=== PATIENT | female | born 2000 | race Hispanic/Latino ===

== ENCOUNTER 2021-11-28 18:11 | Emergency (ER) | payer SELFPAY ==
[2021-11-28] MEDS ORDERED: LIDOCAINE 1% MPF 5 ML VIAL ONE (18:47)
[2021-11-28] MEDS ORDERED: TETANUS & DIPHTHERIA TOX,ADULT 0.5 ML VIAL ONE (19:26)
--- NOTE | 2021-11-28 19:39 | EDPHYS ---
Physician Documentation [facility] Name: Monse Conklin Age: 21 yrs Sex: Female : 2000 Arrival Date: 11/28/2021 Time: 18:14 Bed 11 Private MD: ED Physician Adam Chris HPI: 11/28 18:28 This 21 yrs old Female presents to ER via Ambulatory with complaints of en Laceration To Hand. 18:28 21 yo RHD F presents to ED with laceration to right ring finger from broken glass SCRIPT COORDINATOR. en No numbness or tingling. FROM. bleeding controlled. unk last Tetanus. Historical: - Allergies: 18:27 PENICILLINS; jb4 - Home Meds: 18:27 None [Active]; jb4 - PMHx: 18:27 None; jb4 - PSHx: 18:27 None; jb4 - Immunization history:: Last tetanus immunization: < 5 years ago. - Social history:: Smoking status: Patient denies any tobacco usage or history of. Patient uses alcohol, occasionally. ROS: 18:28 Constitutional: Negative for fever, chills, and weight loss. en 18:28 MS/extremity: Negative for FROM no swelling or deformity. pain over lac. 18:28 Skin: Negative for lac to tuft and across PIP of right middle finger. 18:28 Neuro: Negative for numbness, tingling. 18:28 All other systems are negative. Exam: 18:28 Constitutional: This is a well developed, well nourished patient who is awake, alert, en and in no acute distress. 18:28 Eyes: Conjunctiva: normal, no exudate, no injection. 18:28 ENT: Mouth: Lips: moist, Posterior pharynx: Airway: patent. 18:28 Respiratory: the patient does not display signs of respiratory distress, Respirations: normal. 18:28 Musculoskeletal/extremity: FROM right middle finger at MCP, PIP and DIP of right ring finger. Normal Sensation. Cap refill < 2sec. 18:28 Skin: see above. Vital Signs: 18:24 BP 112 / 85; Pulse 94; Resp 16; Temp 98.5(O); Pulse Ox 98% on R/A; Weight 97.98 kg; jb4 Height 5 ft. 7 in. (170.18 cm); 18:24 Body Mass Index 33.83 (97.98 kg, 170.18 cm) jb4 Laceration: 19:35 Wound Repair of 1.5cm ( 0.6in ) subcutaneous laceration to right ring finger. Distal en neuro/vascular/tendon intact. Anesthesia: Local anesthetic administered with 5 mls of 1% lidocaine. Wound prep: Simple cleansing with betadine. Skin closed with 5 4-0 Nylon using simple sutures and sterile technique. Dressed with bandaid. Patient tolerated well. MDM: 18:28 Differential diagnosis: laceration without tendon injury. en 18:49 Patient medically screened. en 19:35 Data reviewed: vital signs, nurses notes, and as a result, I will discharge patient. 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 Exp: jb4 08/21/2023. Lot #: [id number]. } Route: IM; Site: right deltoid; 19:47 Follow up: Response: Medication administered at discharge. jb4 Disposition: 11/29 09:54 Co-signature as Attending Physician, Adam Chris MD I agree with the assessment and kdr plan of care. Disposition Summary: 11/28/21 19:38 Discharge Ordered Location: Home en Problem: new en Symptoms: have improved en Condition: Stable en Diagnosis - Right ring finger laceration en Followup: en - With: Private Physician - When: 7 - 10 days - Reason: Discharge Instructions: - Discharge Summary Sheet en - Laceration Care, Adult en Forms: - Medication Reconciliation Form en - Thank You Letter en - Antibiotic Education en - Prescription Opioid Use en Signatures: Adam Chris MD MD [facility] Navneet Garza RN RN jb4 Anne Gamez PA PA en
--- NOTE | 2021-11-28 19:39 | ER ---
Nurse's Notes [facility] Name: Monse Conklin Age: 21 yrs Sex: Female : 2000 Arrival Date: 11/28/2021 Time: 18:14 Bed 11 Private MD: Diagnosis: Right ring finger laceration Presentation: 11/28 18:24 Chief complaint: Patient states: I broke my class cup and cut my right ring finger. jb4 Coronavirus screen: At this time, the client does not indicate any symptoms associated with coronavirus-19. Ebola Screen: No symptoms or risks identified at this time. Complicating Factors: There are no complicating factors for this patient. Initial Sepsis Screen: Does the patient meet any 2 criteria? No. Patient's initial sepsis screen is negative. Does the patient have a suspected source of infection? No. Patient's initial sepsis screen is negative. Risk Assessment: Do you want to hurt yourself or someone else? Patient reports no desire to harm self or others. Onset of symptoms was November 28, 2021. Transition of care: patient was not received from another setting of care. 18:24 Method Of Arrival: Ambulatory jb4 18:24 Acuity: JAMES 4 jb4 Historical: - Allergies: 18:27 PENICILLINS; jb4 - Home Meds: 18:27 None [Active]; jb4 - PMHx: 18:27 None; jb4 - PSHx: 18:27 None; jb4 - Immunization history:: Last tetanus immunization: < 5 years ago. - Social history:: Smoking status: Patient denies any tobacco usage or history of. Patient uses alcohol, occasionally. Screenin:45 Abuse screen: Denies threats or abuse. Nutritional screening: No deficits noted. jb4 Tuberculosis screening: No symptoms or risk factors identified. Fall Risk None identified. Assessment: 18:45 General: Appears in no apparent distress. comfortable, Behavior is calm, cooperative, jb4 appropriate for age. Pain: Denies pain. Neuro: Level of Consciousness is awake, alert, obeys commands, Oriented to person, place, time, situation. Cardiovascular: Patient's skin is warm and dry. Respiratory: Airway is patent Respiratory effort is even, unlabored, Respiratory pattern is regular, symmetrical. Derm: Skin is pink, warm \T\ dry. Musculoskeletal: Circulation, motion, and sensation intact. Range of motion: intact in all extremities. Injury Description: Laceration sustained to palmar aspect of distal phalanx of right ring finger and palmar aspect of proximal phalanx of right ring finger. 19:45 Reassessment: Patient appears in no apparent distress at this time. Patient and/or jb4 family updated on plan of care and expected duration. Pain level reassessed. Patient is alert, oriented x 3, equal unlabored respirations, skin warm/dry/pink. Vital Signs: 18:24 BP 112 / 85; Pulse 94; Resp 16; Temp 98.5(O); Pulse Ox 98% on R/A; Weight 97.98 kg; jb4 Height 5 ft. 7 in. (170.18 cm); 18:24 Body Mass Index 33.83 (97.98 kg, 170.18 cm) jb4 ED Course: 18:14 Patient arrived in ED. mr 18:19 Anne Gamez PA is PHCP. en 18:19 Adam Chris MD is Attending Physician. en 18:27 Triage completed. jb4 18:27 Arm band placed on right wrist. jb4 18:45 Patient has correct armband on for positive identification. Bed in low position. Call jb4 light in reach. Side rails up X 1. 19:46 No provider procedures requiring assistance completed. Patient did not have IV access jb4 during this emergency room visit. 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 Exp: jb4 08/21/2023. Lot #: [id number]. } Route: IM; Site: right deltoid; 19:47 Follow up: Response: Medication administered at discharge. jb4 Medication: 19:45 Vaccine Information Statement (VIS) provided today. Questions and/or concerns jb4 addressed. VIS edition date: January 01, 2021. Outcome: 19:38 Discharge ordered by . en 19:46 Discharged to home ambulatory. jb4 19:46 Condition: stable 19:46 Discharge instructions given to patient, Instructed on discharge instructions, follow up and referral plans. Demonstrated understanding of instructions, follow-up care. 19:51 Patient left the ED. jb4 Signatures: Lucia Bell James RN RN jb4 Anne Gamez PA PA en
[2021-11-28 20:03] VITALS: BP 112/85; TEMP 98.5; O2SAT 98
== END 2021-11-28 19:51 | disposition home or self-care (01) ==
LOC: ER 18:11
PROC: 0JQJ0ZZ Repair Right Hand Subcutaneous Tissue and Fascia, Open Approach (ICD-10-PCS; principal; 2021-11-28)
DX: S61.214A Laceration without foreign body of right ring finger without damage to nail, initial encounter (principal); Z23 Encounter for immunization; Z88.0 Allergy status to penicillin
CPT/HCPCS: 90471; 90714; 99283

== ENCOUNTER 2021-12-05 13:32 | Emergency (ER) | payer SELFPAY ==
--- NOTE | 2021-12-05 13:47 | ER ---
Nurse's Notes [facility] Name: Monse Conklin Age: 21 yrs Sex: Female : 2000 Arrival Date: 12/05/2021 Time: 13:33 Bed Waiting Private MD: Diagnosis: Encounter for removal of sutures Presentation: 12/05 13:41 Chief complaint: Patient states: needs sutures removed from right ring finger. iw Coronavirus screen: At this time, the client does not indicate any symptoms associated with coronavirus-19. Ebola Screen: Patient negative for fever greater than or equal to 101.5 degrees Fahrenheit, and additional compatible Ebola Virus Disease symptoms Patient denies exposure to infectious person. Patient denies travel to an Ebola-affected area in the 21 days before illness onset. No symptoms or risks identified at this time. Initial Sepsis Screen: Does the patient meet any 2 criteria? No. Patient's initial sepsis screen is negative. Does the patient have a suspected source of infection? No. Patient's initial sepsis screen is negative. Risk Assessment: Do you want to hurt yourself or someone else? Patient reports no desire to harm self or others. Onset of symptoms was November 28, 2021. 13:41 Method Of Arrival: Ambulatory iw 13:41 Acuity: JAMES 4 iw Triage Assessment: 13:48 General: Appears in no apparent distress. Behavior is calm, cooperative. iw Historical: - Allergies: 13:42 PENICILLINS; iw Screenin:47 Abuse screen: Denies threats or abuse. Denies injuries from another. Nutritional iw screening: No deficits noted. Tuberculosis screening: No symptoms or risk factors identified. Fall Risk None identified. Assessment: 13:47 Reassessment: left 2 sutures in placed with instructions to return on mon or iw this week for removal , pt advised to keep area dry,and that she does not need to keep band aid on at all times. Vital Signs: 13:46 Resp 16; Temp 97.7; Pulse Ox 100% on R/A; iw ED Course: 13:33 Patient arrived in ED. as 13:39 Hiral Bernal FNP-C is PHCP. kb 13:39 Cipriano Issa MD is Attending Physician. kb 13:42 Triage completed. iw 13:42 Arm band placed on. iw 13:50 No provider procedures requiring assistance completed. Patient did not have IV access iw during this emergency room visit. 13:51 Niru Ibarra, RN is Primary Nurse. iw Administered Medications: No medications were administered Outcome: 13:46 Discharge ordered by MD. osuna 13:47 Discharged to home ambulatory. iw 13:47 Condition: good 13:47 Discharge instructions given to patient. 13:47 No charge visit due to suture removal. 13:51 Patient left the ED. iw Signatures: Hiral Bernal, TUTOR-C TUTOR-Debra Nieto as Niru Ibarra, RN RN iw Corrections: (The following items were deleted from the chart) 13:50 13:46 Resp 16bpm; Pulse Ox 100% RA; Temp 97.7F; iw iw
--- NOTE | 2021-12-05 13:47 | EDPHYS ---
Physician Documentation [facility] Name: Monse Conklin Age: 21 yrs Sex: Female : 2000 Arrival Date: 12/05/2021 Time: 13:33 Bed Waiting Private MD: ED Physician Cipriano Issa HPI: 12/05 14:36 This 21 yrs old Female presents to ER via Ambulatory with complaints of Suture kb Removal. 14:36 The patient has sutures on the right ring finger. Previous treatment: The patient was kb initially treated 7 day(s) ago, the care was rendered at [facility], Treatment type: The patient's original treatment included sutures. Sutures/latonia progress: The patient has no c/o's. The wound is well-healing with no redness, swelling, discharge, or dehiscence reported. The patient has not experienced similar symptoms in the past. The patient has not recently seen a physician. Historical: - Allergies: 13:42 PENICILLINS; iw ROS: 14:32 Constitutional: Negative for fever, chills, and weight loss. kb 14:35 Skin: Positive for of the right ring finger, sutures in place. kb 14:35 All other systems are negative. Exam: 14:35 Constitutional: This is a well developed, well nourished patient who is awake, alert, kb and in no acute distress. Head/Face: Normocephalic, atraumatic. ENT: Moist Mucous membranes Respiratory: Respirations even and unlabored. No increased work of breathing. Talking in full sentences MS/ Extremity: Pulses equal, no cyanosis. Neurovascular intact. Full, normal range of motion. Neuro: Awake and alert, GCS 15, oriented to person, place, time, and situation. Moves all extremities. Normal gait. Psych: Awake, alert, with orientation to person, place and time. Behavior, mood, and affect are within normal limits. 14:35 Skin: Wound recheck: Suture laceration closure: the wound is healing well, the edges are well approximated, no evidence of dehiscence, no drainage, no erythema, no swelling. Vital Signs: 13:46 Resp 16; Temp 97.7; Pulse Ox 100% on R/A; iw Procedures: 14:37 Suture/Staple removal: Removed 4 sutures, from right ring finger, site appears healing kb well, when middle suture removed, wound opened slightly. will leave last suture in place for a few more days , Patient tolerated well. MDM: 13:39 Patient medically screened. kb 14:32 Data reviewed: vital signs, nurses notes. Data interpreted: Pulse oximetry: on room air kb is 100 %. Interpretation: normal. Counseling: I had a detailed discussion with the patient and/or guardian regarding: the historical points, exam findings, and any diagnostic results supporting the discharge/admit diagnosis, the need for outpatient follow up, a family practitioner, to return to the emergency department if symptoms worsen or persist or if there are any questions or concerns that arise at home. ED course: Pt educated to return on Mon or for removal of last suture. . Administered Medications: No medications were administered Disposition: 16:47 Co-signature as Attending Physician, Cipriano Issa MD. rn Disposition Summary: 12/05/21 13:46 Discharge Ordered Location: Home kb Condition: Stable kb Diagnosis - Encounter for removal of sutures kb Followup: kb - With: Emergency Department - When: As needed - Reason: Worsening of condition Followup: kb - With: Private Physician - When: 2 - 3 days - Reason: Recheck today's complaints, Continuance of care, Re-evaluation by your physician Discharge Instructions: - Discharge Summary Sheet kb - Suture Removal, Care After kb Forms: - Medication Reconciliation Form kb - Thank You Letter kb - Antibiotic Education kb - Prescription Opioid Use kb Signatures: Hiral Bernal FNP-C FNP-Niru Betts RN RN Cipriano Jackson MD MD rn
[2021-12-05 13:55] VITALS: TEMP 97.7; O2SAT 100
== END 2021-12-05 13:51 | disposition home or self-care (01) ==
LOC: ER 13:32
DX: Z48.02 Encounter for removal of sutures (principal)

== ENCOUNTER 2021-12-09 17:23 | Emergency (ER) | payer SELFPAY ==
--- NOTE | 2021-12-09 18:25 | ER ---
Nurse's Notes [facility] Name: Monse Conklin Age: 21 yrs Sex: Female : 2000 Arrival Date: 12/09/2021 Time: 17:26 Bed DIS3 Private MD: Diagnosis: Encounter for removal of sutures Presentation: 12/09 17:59 Chief complaint: Patient states: needs to have sutures removed from finger. Coronavirus iw screen: At this time, the client does not indicate any symptoms associated with coronavirus-19. Ebola Screen: Patient negative for fever greater than or equal to 101.5 degrees Fahrenheit, and additional compatible Ebola Virus Disease symptoms Patient denies exposure to infectious person. Patient denies travel to an Ebola-affected area in the 21 days before illness onset. No symptoms or risks identified at this time. Initial Sepsis Screen: Does the patient meet any 2 criteria? No. Patient's initial sepsis screen is negative. Does the patient have a suspected source of infection? No. Patient's initial sepsis screen is negative. Risk Assessment: Do you want to hurt yourself or someone else? Patient reports no desire to harm self or others. Onset of symptoms was December 09, 2021. 17:59 Method Of Arrival: Ambulatory iw 17:59 Acuity: JAMES 4 iw Historical: - Allergies: 17:59 PENICILLINS; iw Screenin:00 Abuse screen: Denies threats or abuse. Denies injuries from another. Nutritional iw screening: No deficits noted. Tuberculosis screening: No symptoms or risk factors identified. Fall Risk None identified. Assessment: 18:00 General: Appears in no apparent distress. Behavior is calm, cooperative. Pain: Denies iw pain. Neuro: Level of Consciousness is awake, alert, obeys commands, Oriented to person, place, time, situation. ED Course: 17:26 Patient arrived in ED. as 17:27 Raj Moran PA is PHCP. cp 17:27 Ace Ernst MD is Attending Physician. cp 17:59 Triage completed. iw 18:00 Nriu Ibarra, RN is Primary Nurse. iw 18:00 Arm band placed on. iw 18:01 Patient did not have IV access during this emergency room visit. iw 18:52 Finger splint post suture removal. jl7 Administered Medications: No medications were administered Outcome: 18:25 Discharge ordered by . rei 18:52 Patient left the ED. jl7 Signatures: Debra Cox Irene, RN RN Raj Darden PA PA cp Leal, Jahala, RN RN jl7
--- NOTE | 2021-12-09 18:25 | EDPHYS ---
Physician Documentation [facility] Name: Monse Conklin Age: 21 yrs Sex: Female : 2000 Arrival Date: 12/09/2021 Time: 17:26 Bed DIS3 Private MD: ED Physician Ace Ernst HPI: 12/09 18:23 This 21 yrs old Female presents to ER via Ambulatory with complaints of Suture cp Removal. 18:23 The patient has sutures on the right fourth finger. Previous treatment: the care was cp rendered at [facility]. Sutures/latonia progress: The patient has no c/o's. The wound is well-healing with no redness, swelling, discharge, or dehiscence reported. Historical: - Allergies: 17:59 PENICILLINS; iw ROS: 18:23 Skin: Positive for of the nicole side right fourth finger, suture, Negative for cp erythema. 18:23 Constitutional: Negative for body aches, chills, fever. cp Exam: 18:23 Skin: cellulitis, is not appreciated, Wound recheck: Suture laceration closure: the cp wound is healing well, the edges are well approximated, no evidence of dehiscence, no drainage, no erythema, no swelling, [address] nicole side middle phalanx right fourth finger. 18:23 Constitutional: The patient appears in no acute distress, alert, awake, comfortable, cp non-toxic, well developed, well nourished. Procedures: 18:25 Suture/Staple removal: Removed 1 sutures, from middle phalanx nicole side right fourth cp finger, site appears well healed, Patient tolerated well. MDM: 18:15 Patient medically screened. cp 18:25 Data reviewed: vital signs, nurses notes. cp 18:25 Counseling: I had a detailed discussion with the patient and/or guardian regarding: the cp historical points, exam findings, and any diagnostic results supporting the discharge/admit diagnosis, to return to the emergency department if symptoms worsen or persist or if there are any questions or concerns that arise at home. Response to treatment: the patient's symptoms have markedly improved after treatment, and as a result, I will discharge patient. 12/09 18:23 Order name: Finger Splint; Complete Time: 18:51 cp Administered Medications: No medications were administered Disposition: 12/10 15:56 Co-signature as Attending Physician, Raj CHAPMAN Attestation: The patient's history, jr11 exam findings, diagnostics, and a summary of any interventions or procedures was reviewed in detail with Raj CHAPMAN. Disposition Summary: 12/09/21 18:25 Discharge Ordered Location: Home cp Problem: new cp Symptoms: have improved cp Condition: Stable cp Diagnosis - Encounter for removal of sutures cp Followup: cp - With: Private Physician - When: 2 - 3 days - Reason: Worsening of condition Discharge Instructions: - Discharge Summary Sheet cp - How to Change Your Wound Dressing cp - Suture Removal, Care After cp Forms: - Medication Reconciliation Form cp - Thank You Letter cp - Antibiotic Education cp - Prescription Opioid Use cp Signatures: Niru Ibarra RN RN Raj Darden PA PA cp Ace Ernst MD MD [id number] Corrections: (The following items were deleted from the chart) 12/09 18:26 18:23 The patient has sutures on the left fourth finger, cp cp 12/10 14:31 12/09 18:23 Skin: Positive for of the nicole side right fourth finger, sutures, cp cp
== END 2021-12-09 18:52 | disposition home or self-care (01) ==
LOC: ER 17:23
DX: Z48.02 Encounter for removal of sutures (principal)
CPT/HCPCS: 99282

== ENCOUNTER 2024-01-30 01:36 | Emergency (ER) | payer SELFPAY ==
[2024-01-30] MEDS ORDERED: ONDANSETRON 4 MG/2 ML VIAL ONE (02:10)
[2024-01-30] MEDS ORDERED: NA CHLORIDE 0.9% 1,000 ML ONE (02:10)
[2024-01-30] MEDS ORDERED: MORPHINE 4 MG/ML SYR ONE (02:10)
[2024-01-30 02:29] LABS: Absolute Eosinophils 0.1 K/uL (0-0.5); Absolute Lymphocytes (CBC) 2.9 K/uL (0.7-4.9); Absolute Monocytes 0.7 K/uL (0.1-1.3); Absolute Neutrophil 8.8 K/uL (1.8-8.0); Basophils % 0.2 % (0-1.3); Eosinophils % 0.5 % (0-4.4); Hematocrit 38.8 % (36.0-45.0); Hemoglobin 12.4 g/dL (12.0-15.0); Lymphocytes % 23.3 % (15.3-44.8); MCH 27.4 pg (27.0-35.0); MCHC 31.8 g/dL (32.0-36.0); MCV 86.1 fL (80-100); MPV 9.3 fL (7.6-11.3); Monocytes % 5.6 % (3.3-12.3); Neutrophils % 70.4 % (41.7-73.7); Nucleated Red Blood Cells % 0.1 % (0-0); Platelets 259 thou/uL (152-406); RBC Red Blood Cell Count 4.51 M/uL (3.86-4.86); Red Cell Distribution Width 14.7 % (12.1-15.2)
[2024-01-30 02:32] LABS: Specific Gravity 1.016 (1.005-1.030)
[2024-01-30 02:37] LABS: Specific Gravity 1.016 (1.005-1.030); Sqamous Epithelial <5 /HPF (None Seen); Urine Bacteria None Seen /HPF (<20); Urine Bilirubin NEGATIVE (Negative); Urine Blood Trace (Negative); Urine Clarity Extremely Turbid (Clear); Urine Color Light-Yellow (Yellow); Urine Crystals Unidentified Few /HPF (None Seen); Urine Culture Reflex Order REFLEXED; Urine Glucose NEGATIVE (Negative); Urine Ketones NEGATIVE (Negative); Urine Microscopic Reflex YN ORDER UMIC; Urine Nitrite NEGATIVE (Negative); Urine Protein TRACE (Negative); Urine Urobilinogen Normal (Normal); Urine WBC >50 /HPF (<5); Urine WBC Clump Rare /HPF (None Seen); Urine pH 6.5 (5.0-7.0)
[2024-01-30 02:47] LABS: ALT/SGPT 16 U/L (13-56); Albumin 3.8 g/dL (3.4-5.0); Albumin/Globulin Ratio 0.9 (1.1-1.8); Alkaline Phosphatase 91 U/L (45-117); Anion Gap 9.6 mEq/L (5.0-15.0); BUN Blood Urea Nitrogen 15 mg/dL (7-18); Bicarbonate 25 mEq/L (21-32); Bilirubin Total 0.3 mg/dL (0.2-1.0); Globulin 4.4 g/dL (2.3-3.5); Glomerular Filtration Rate 102 ml/min (=/>90); Glucose Level 117 mg/dL (74-106); Lipase 28 U/L (13-75); Potassium 3.6 mEq/L (3.5-5.1); Protein, Total 8.2 g/dL (6.4-8.2); Sodium Level 138 mEq/L (136-145)
[2024-01-30 02:51] LABS: AST/SGOT < 10 U/L (15-37)
--- NOTE | 2024-01-30 03:57 | EDPHYS ---
Physician Documentation [facility] Name: Monse Conklin Age: 23 yrs Sex: Female : 2000 Arrival Date: 01/30/2024 Time: 01:36 Bed 16 Private MD: ED Physician Raphael Cast HPI: 01/29 01:58 This 23 yrs old Female presents to ER via Ambulatory with complaints of ec2 Abdominal Pain. 01:58 Patient arrives today for evaluation of upper and right-sided abdominal pain. Patient ec2 reports that she has been experiencing upper abdominal pain ongoing since 2 days ago. Patient reports associated nausea, no vomiting. No previous abdominal surgeries. LMP was approximately 2-1/2 weeks ago. No urinary complaints.. 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 - Infectious Disease History:: Denies. - Social history:: Smoking status: Patient denies any tobacco usage or history of. Patient uses alcohol, occasionally. street drugs, marijuana. ROS: 01:58 Constitutional: as per hpi ec2 Exam: 01:58 Constitutional: GEN: NAD Head: atraumatic Eyes: EOMI Ears: External ears are ec2 normal. CV: regular rate LUNGS: no respiratory distress ABD: non-distended, soft, tender in the epigastrium, tender in the right upper and lower quadrant, right flank CVA TTP. SKIN: no evidence of rashes MSK: no evidence of trauma Vital Signs: 01:50 BP 120 / 67; Pulse 82; Resp 18 S; Temp 98.4(O); Pulse Ox 100% on R/A; Weight 95.25 kg lg3 (R); Height 5 ft. 6 in. (R); Pain 8/10; 04:08 BP 134 / 93; Pulse 79; Resp 18; Temp 98.4; Pulse Ox 100% ; cp4 01:50 Body Mass Index 33.89 (95.25 kg, 167.64 cm) lg3 01:50 Pain Scale: Adult lg3 MDM: 01:48 Patient medically screened. ec2 01:58 Data reviewed: vital signs. ED course: Patient arrives today for upper and right-sided ec2 abdominal pain. Examination remarkable for abdominal findings as above. Will obtain lab work, CT imaging.. 02:42 ED course: CBC shows slight leukocytosis. Urine is pertinent for leuk esterase and ec2 WBCs, negative nitrates and bacteria. testing negative. . 03:55 ED course: Urine has leuk esterase present, CT imaging shows concern for possible ec2 cystitis, ovarian cyst noted. Will treat for UTI. . 01/29 01:57 Order name: CBC with Diff; Complete Time: 02:42 ec2 01/29 01:57 Order name: CMP; Complete Time: 02:54 ec2 01/29 01:57 Order name: Lipase; Complete Time: 02:54 ec2 01/29 01:57 Order name: Test, Urine; Complete Time: 02:42 ec2 01/29 01:57 Order name: Urinalysis w/ reflexes; Complete Time: 02:42 ec2 01/29 02:41 Order name: Urine Culture EDNC 01/29 01:57 Order name: CT Abd/Pelvis - IV Contrast Only ec2 01/29 01:57 Order name: IV Saline Lock; Complete Time: 02:09 ec2 01/29 01:57 Order name: Labs collected and sent; Complete Time: 02:09 ec2 Administered Medications: 02:16 Drug: NS 0.9% IV 1000 ml IV at 1 bolus Per protocol; 1000 mL bolus Route: IV; Rate: 1 cp4 bolus; Site: left antecubital; 04:09 Follow up: Response: No adverse reaction; IV Status: Completed infusion cp4 02:16 Drug: Ondansetron IVP 4 mg IVP once; over 2 minutes Route: IVP; Site: left antecubital; cp4 02:40 Follow up: Response: No adverse reaction al5 02:16 Drug: morphine IVP or IV 4 mg IVP once over 4 mins Route: IVP; Infused Over: 4 mins; cp4 Site: left antecubital; 02:40 Follow up: Response: No adverse reaction al5 04:09 Drug: Macrobid PO 100 mg PO once; administer with food Route: PO; cp4 04:09 Follow up: Response: No adverse reaction cp4 Disposition Summary: 01/30/24 03:57 Discharge Ordered Notes: Location: Home ec2 Condition: Stable ec2 Diagnosis - UTI/ Urinary tract infection, site not specified ec2 Followup: ec2 - With: Private Physician - When: - Reason: Re-evaluation by your physician Discharge Instructions: - Discharge Summary Sheet ec2 - Urinary Tract Infection, Adult ec2 Forms: - Medication Reconciliation Form ec2 - Antibiotic Education ec2 - Prescription Opioid Use ec2 - Patient Portal Instructions ec2 - Leadership Thank You Letter ec2 Prescriptions: - Macrobid 100 mg Oral Capsule - take 1 capsule ORAL route every 12 hours for 7 days; 14 capsule; Refills: 0, ec2 Product Selection Permitted Signatures: Dispatcher [employer] Marina Ybarra RN RN lg3 Raphael Cast MD MD ec2 Yovana Samuels cp4 Rivka Cruz RN al5
--- NOTE | 2024-01-30 03:57 | ER ---
Nurse's Notes [facility] Name: Monse Conklin Age: 23 yrs Sex: Female : 2000 Arrival Date: 01/30/2024 Time: 01:36 Bed 16 Private MD: Diagnosis: UTI/ Urinary tract infection, site not specified Presentation: 01/29 01:50 Chief complaint: Patient states: lower abdominal pain radiating to back X2 days and lg3 worsening. pain 8/10. Coronavirus screen: Client denies travel out of the [place] in the last 14 days. At this time, the client does not indicate any symptoms associated with coronavirus-19. Ebola Screen: No symptoms or risks identified at this time. Risk Assessment: Do you want to hurt yourself or someone else? Patient reports no desire to harm self or others. Onset of symptoms was January 27, 2024. 01:50 Method Of Arrival: Ambulatory lg3 01:50 Acuity: JAMES 3 lg3 01:50 Initial Sepsis Screen: Does the patient meet any 2 criteria? No. Patient's initial lg3 sepsis screen is negative. Does the patient have a suspected source of infection? No. Patient's initial sepsis screen is negative. Triage Assessment: 01:51 General: Appears in no apparent distress. uncomfortable, Behavior is calm, cooperative. lg3 Pain: Complains of pain in right lower quadrant and left lower quadrant Pain radiates to low back area. EENT: No deficits noted. No signs and/or symptoms were reported regarding the EENT system. Neuro: No deficits noted. Denise Agitation-Sedation Scale (RASS): 0 - Alert and Calm Level of Consciousness is awake, alert, obeys commands, Oriented to person, place, time, situation. Cardiovascular: No deficits noted. Denies chest pain, shortness of breath, Capillary refill < 3 seconds Clubbing of nail beds is absent JVD is absent Patient's skin is warm and dry. Respiratory: No deficits noted. Airway is patent Respiratory effort is even, unlabored, Respiratory pattern is regular, symmetrical. GI: Abdomen is round non-distended, obese, Reports lower abdominal pain, cramping. : No signs and/or symptoms were reported regarding the genitourinary system. Derm: No deficits noted. No signs and/or symptoms reported regarding the dermatologic system. Skin is intact, is healthy with good turgor, Skin is dry, Skin is normal, Skin temperature is warm. Musculoskeletal: No deficits noted. No signs and/or symptoms reported regarding the musculoskeletal system. Circulation, motion, and sensation intact. Range of motion: intact in all extremities. 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 - Infectious Disease History:: Denies. - Social history:: Smoking status: Patient denies any tobacco usage or history of. Patient uses alcohol, occasionally. street drugs, marijuana. Screenin:19 [facility] ED Fall Risk Assessment (Adult) History of falling in the last 3 months, cp4 including since admission No falls in past 3 months (0 pts) Confusion or Disorientation No (0 pts) Intoxicated or Sedated No (0 pts) Impaired Gait No (0 pts) Mobility Assist Device Used No (0 pt) Altered Elimination No (0 pt) Score/Fall Risk Level 0 - 2 = Low Risk Oriented to surroundings, Maintained a safe environment, Assessed \T\ reinforced patient's understanding of fall precautions, Hourly rounding (assess needs \T\ fall precautionary measures) done. Abuse screen: Denies threats or abuse. Nutritional screening: No deficits noted. Tuberculosis screening: No symptoms or risk factors identified. Assessment: 02:19 General: Appears in no apparent distress. uncomfortable, Behavior is calm, cooperative, cp4 appropriate for age. Pain: Complains of pain in back and low back area and abdomen and left lower quadrant and right lower quadrant Pain does not radiate. Pain currently is 8 out of 10 on a pain scale. Neuro: Level of Consciousness is awake, alert, obeys commands, Oriented to person, place, time, situation. Cardiovascular: Patient's skin is warm and dry. Respiratory: Airway is patent Respiratory effort is even, unlabored. GI: Abdomen is round non-distended, Bowel sounds present X 4 quads. Abd is soft and non tender X 4 quads. : No signs and/or symptoms were reported regarding the genitourinary system. EENT: No signs and/or symptoms were reported regarding the EENT system. Derm: No signs and/or symptoms reported regarding the dermatologic system. Musculoskeletal: No signs and/or symptoms reported regarding the musculoskeletal system. Vital Signs: 01:50 BP 120 / 67; Pulse 82; Resp 18 S; Temp 98.4(O); Pulse Ox 100% on R/A; Weight 95.25 kg lg3 (R); Height 5 ft. 6 in. (R); Pain 8/10; 04:08 BP 134 / 93; Pulse 79; Resp 18; Temp 98.4; Pulse Ox 100% ; cp4 01:50 Body Mass Index 33.89 (95.25 kg, 167.64 cm) lg3 01:50 Pain Scale: Adult lg3 ED Course: 01:39 Patient arrived in ED. jj6 01:40 Raphael Cast MD is Attending Physician. ec2 01:51 Triage completed. lg3 01:51 Arm band placed on right wrist. lg3 01:59 Yovana Samuels is Primary Nurse. cp4 02:19 Bed in low position. Call light in reach. Side rails up X 1. cp4 02:19 No provider procedures requiring assistance completed. Initial lab(s) drawn, by nc, cp4 sent to lab. Urine collected: clean catch specimen, clear. Inserted saline lock: 20 gauge in left antecubital area, using aseptic technique. Blood collected. Flushed with 10 mL NS. 03:32 CT Abd/Pelvis - IV Contrast Only In Process Unspecified. EDMS 04:08 Provided Education on: urinary tract infection. cp4 04:08 intact, bleeding controlled, No redness/swelling at site. Pressure dressing applied. cp4 Administered Medications: 02:16 Drug: NS 0.9% IV 1000 ml IV at 1 bolus Per protocol; 1000 mL bolus Route: IV; Rate: 1 cp4 bolus; Site: left antecubital; 04:09 Follow up: Response: No adverse reaction; IV Status: Completed infusion cp4 02:16 Drug: Ondansetron IVP 4 mg IVP once; over 2 minutes Route: IVP; Site: left antecubital; cp4 02:40 Follow up: Response: No adverse reaction al5 02:16 Drug: morphine IVP or IV 4 mg IVP once over 4 mins Route: IVP; Infused Over: 4 mins; cp4 Site: left antecubital; 02:40 Follow up: Response: No adverse reaction al5 04:09 Drug: Macrobid PO 100 mg PO once; administer with food Route: PO; cp4 04:09 Follow up: Response: No adverse reaction cp4 Medication: 02:19 VIS not applicable for this client. cp4 Outcome: 03:57 Discharge ordered by . ec2 04:08 Discharged to home ambulatory, cp4 04:08 Condition: stable 04:08 Discharge instructions given to patient, Instructed on discharge instructions, follow up and referral plans. medication usage, Demonstrated understanding of instructions, follow-up care, medications, Prescriptions given X 1, 04:10 Patient left the ED. cp4 Signatures: Dispatcher [employer] Marina Ybarra, RN RN lg3 Leslie Prestonj6 Raphael Cast MD MD ec2 Yovana Samuels cp4 Rivka Cruz RN RN al5
[2024-01-30] MEDS ORDERED: NITROFURAN MACRO 100 MG CAP PO ONE (04:00)
[2024-01-30 04:28] VITALS: TEMP 98.4; O2SAT 100
[2024-01-30 04:34] VITALS: BP 134/93
--- NOTE | 2024-01-30 11:35 | RAD REPORT ---
EXAM DESCRIPTION: CT - Abdomen Pelvis W Contrast - 01/30/2024 7:09 am CLINICAL HISTORY: The patient is 23 years old and is Female; Right abdomen pain into flank TECHNIQUE: Axial computed tomography images of the abdomen and pelvis with intravenous contrast. S agittal and coronal reformatted images were created and reviewed. This CT exam was performed using one or more of the following dose reduction techniques: automated exposure control, adjustment of t he mA and/or kV according to patient size, and/or use of iterative reconstruction technique. COMPARISON: None. FINDINGS: LUNG BASES: Unremarkable No mass. No consolidation. ABDOMEN: LIVER: Unremarkable No mass. GALLBLADDER AND BILE DUCTS: Unremarkable No calcified stones. No ductal dilation. PANCREAS: Unremarkable No mass. No ductal dilation. SPLEEN: Unremarkable No splenomegaly. ADRENALS: Unremarkable No mass. KIDNEYS AND URETERS: No obstructive intrarenal or intraureteral stones identified. STOMACH AND BOWEL: Unremarkable No obstruction. No mucosal thickening. PELVIS: APPENDIX: No findings to suggest acute appendicitis. BLADDER: Circumferential urinary bladder wall thickening and perivesicular fat stranding, suspiciou s for cystitis. REPRODUCTIVE: 1.7 cm involuting ovarian cyst demonstrated in the posterior right adnexa. Physiologic left ovarian cyst measuring up to 4.7 cm. ABDOMEN and PELVIS: INTRAPERITONEAL SPACE: Unremarkable No free air. No significant fluid collection. BONES/JOINTS: No acute fracture. No dislocation. SOFT TISSUES: Unremarkable VASCULATURE: 0.3 cm phlebolith demonstrated in the right hemipelvis. No abdominal aortic aneurysm. LYMPH NODES: Unremarkable No enlarged lymph nodes. IMPRESSION: 1. Circumferential urinary bladder wall thickening and perivesicular fat stranding, jones spicious for cystitis. Correlation with urinalysis and culture recommended. 2. Small involuting ovarian cyst demonstrated in the posterior right adnexa. No dedicated imaging f ollow-up recommended. 3. Left ovarian simple-appearing cyst measuring 4.7 cm. No follow-up imaging is recommended. Refere thomase: TY 2019;17(2):248-254 Electronically signed by: Emmett Zarate MD 01/30/2024 03:52 AM CDT RP Due to temporary technical issues with the PACS/Fluency reporting system, reports are being signed by the in house radiologists without review as a courtesy to insure prompt reporting. The interpreting radiologist is fully responsible for the content of the report.
== END 2024-01-30 04:10 | disposition home or self-care (01) ==
LOC: ER 01:36
DX: N39.0 Urinary tract infection, site not specified (principal)
CPT/HCPCS: 36415; 74177; 80053; 81001; 81025; 83690; 85025; 87077; 87086; 87088; 87186; 96361; 96374; 96375; 99284; J2405; J7030; Q9967